=== PATIENT | male | born 1990 | race Caucasian/White ===

== ENCOUNTER 2022-02-22 21:06 | Emergency (ER) | payer BC ==
[2022-02-22] MEDS ORDERED: Lidocaine 2% Viscous Solution 15 ML UD PO ONE (21:45)
[2022-02-22] MEDS ORDERED: Acetaminophen 500 MG Tab PO ONE (21:47)
[2022-02-22] MEDS: Ibuprofen 800 MG Tab PO ONE (22:15)
[2022-02-22] MEDS ORDERED: Diphtheria,Pertussis(Acell),Tetanus Vaccine 0.5 ML Syringe IM ONE (22:19)
[2022-02-23] MEDS ORDERED: Lidocaine 2% Viscous Solution 15 ML UD PO ONE (02:04)
[2022-02-23] MEDS: Ibuprofen 800 MG Tab PO ONE (02:05)
== END 2022-02-22 22:27 | disposition home or self-care (01) ==
LOC: FB.ED 21:06
DX: T23.102A Burn of first degree of left hand, unspecified site, initial encounter (principal); Z23 Encounter for immunization; X15.0XXA Contact with hot stove (kitchen), initial encounter
CPT/HCPCS: 90471; 90715; 99283; A9270